=== PATIENT | female | born 1950 | race Caucasian/White ===

== ENCOUNTER → 2017-08-10 14:35 | Outpatient (CLI) | payer MEDICARE, OTHER, SELFPAY ==
[2017-08-10 16:23] LABS: AST(SGOT) 19 U/L (15-37); Alanine Aminotransfer ALT/SGPT 27 U/L (13-56); Free T3 2.9 pg/mL (2.18-3.98); Thyroid Stim Hormone (TSH) 1.54 uIU/mL (0.358-3.74)
== END ==
PROVIDERS: Family Provider Internal Medicine; PCP Internal Medicine; Visit Provider Nurse Practitioner
DX: E04.1 Nontoxic single thyroid nodule (principal)
CPT/HCPCS: 36415; 84439; 84443; 84450; 84460; 84481

== ENCOUNTER → 2017-09-08 12:13 | Outpatient (CLI) | payer MEDICARE, OTHER, SELFPAY ==
--- NOTE | 2017-09-07 15:00 | ASPS_PTH ---
PATIENT: DELIO HUSSEIN LOC: [facility] U#:[id number] AGE/SX: 75/F ROOM: RE09/08/[address]: Dr. Vasiliy Davis MD : [id number] BED: DIS: SPEC #: [id number] RECD: 09/08/17 12:12 STATUS: PARMINDER [place] #: [id number] CALI: 09/07/17 15:[address]: Vasiliy Davis DEPT: CYTOLOGY RECD BY: Mirza Grace Tissues: A - Thyroid gland, NOS B - Thyroid gland, NOS C - Thyroid gland, NOS D - Thyroid gland, NOS E - Thyroid isthmus Procedures: Pap Stain (control) Special Stain Group II Cytology Other HEADER OPERATION: Bilateral thyroid FNA x5 PRE-OP DIAGNOSIS: Multiple thyroid nodules TISSUE SUBMITTED: A ? Right mid thyroid 2 slides, B ? Right lower thyroid 2 slides, C ? Right superior thyroid 2 slides, D ? Left inferior thyroid 3 slides, E ? Isthmus 4 slides DIAGNOSIS CYTOLOGY A. Right mid thyroid nodule, FNA (smears): Consistent with benign colloid nodule. See cytology study and comment. B. Right lower thyroid nodule, FNA (smears): Consistent with benign colloid nodule. See cytology study and comment. C. Right superior thyroid nodule, FNA (smears): A cluster of benign follicular cells noted. See cytology study and comment. D. Right inferior thyroid nodule, FNA (smears): Consistent with benign follicular nodule. See cytology study and comment. E. Isthmus nodule, FNA (smears): Consistent with benign follicular nodule. See cytology study and comment. SJ:rg 09/09/17 COMMENT Correlation with clinical, radiologic findings and appropriate follow up are necessary. CYTOLOGY STUDY Slides are reviewed. A. The specimen is adequate for evaluation due to presence of abundant colloid. The specimen consists of abundant colloid and benign follicular cells. B. The specimen is adequate for evaluation due to presence of abundant colloid. The specimen consists of abundant colloid and rare benign follicular cells. C. The specimen is limited in evaluation due to lack of adequate number of follicular cells. Significant amount of colloid is not seen. D. The specimen is adequate for evaluation. The specimen consists of benign follicular cells and a small amount of diluted colloid. E. The specimen is adequate for evaluation. The specimen consists of benign follicular cells and a small amount of diluted colloid. CYTOLOGY GROSS A - Received are two smears labeled with the patient's name and designated per the requisition as right mid thyroid. Submitted for staining. B - Received are two smears labeled with the patient's name and designated per the requisition as right lower thyroid. Submitted for staining. C - Received are two smears labeled with the patient's name and designated per the requisition as right superior thyroid. Submitted for staining. D - Received are three smears labeled with the patient's name and designated per the requisition as right inferior thyroid. Submitted for staining. E - Received are four smears labeled with the patient's name and designated per the requisition as isthmus. Submitted for staining. 09/08/17 TC:5 CPT: 36567 x5
== END ==
PROVIDERS: Visit Provider Surgery
DX: E04.2 Nontoxic multinodular goiter (principal)
CPT/HCPCS: 88161; 88313

== ENCOUNTER → 2017-11-21 13:53 | Outpatient (CLI) | payer MEDICARE, OTHER, SELFPAY ==
--- NOTE | 2017-11-21 14:01 | RAD_ITS ---
STUDY: X-RAY - LEFT KNEE REASON FOR EXAM: Female, 67 years old. Pain TECHNIQUE: 4 view(s) of the knee. COMPARISON: None. FINDINGS: There is narrowing of the medial compartment of the knee joint with small spurs from the medial tibial femoral condyles. There is also spurring from the lateral tibial condyle. There are no acute fractures and no knee joint effusion. The quadriceps and patellar tendons are normal. RAD/Lumbar Spine 2 or 3 Views IMPRESSION: Mild osteoarthritis of the left knee. No fracture Electronically Signed: Dieudonne Sadler, at 7:20 EDT Tel , Service support ,
--- NOTE | 2017-11-21 14:03 | RAD_ITS ---
STUDY: X-RAY - LEFT KNEE REASON FOR EXAM: Female, 67 years old. Pain TECHNIQUE: 4 view(s) of the knee. COMPARISON: None. FINDINGS: There is narrowing of the medial compartment of the knee joint with small spurs from the medial tibial femoral condyles. There is also spurring from the lateral tibial condyle. There are no acute fractures and no knee joint effusion. The quadriceps and patellar tendons are normal. RAD/Knee 1 or 2 Views IMPRESSION: Mild osteoarthritis of the left knee. No fracture Electronically Signed: Dieudonne Sadler, at 7:20 EDT Tel , Service support ,
== END ==
PROVIDERS: Visit Provider Anesthesiology Pain Medicine
DX: M25.562 Pain in left knee (principal); M54.9 Dorsalgia, unspecified; M79.606 Pain in leg, unspecified
CPT/HCPCS: 72100; 73560

== ENCOUNTER → 2017-12-05 14:36 | Outpatient (CLI) | payer MEDICARE, OTHER, SELFPAY ==
--- NOTE | 2017-12-05 14:38 | BI_ITS ---
MAMMOGRAPHY - BILATERAL SCREENING REASON FOR EXAM: Female, 67 years old. Routine annual screening examination. PERTINENT HISTORY: Non-contributory. History of bilateral breast implants. TECHNIQUE: Digital bilateral breast grecia (3D mammographic acquisition) in the CC and MLO projections. 2-D mediolateral oblique (MLO) and craniocaudad (CC) views of both breasts were obtained. CAD: Full Field Digital Mammography with Computer Added Detection was performed. COMPARISON: Comparison is made with prior study dated November 16, 2016. FINDINGS: Breast Composition: There are scattered areas of fibroglandular density. There are no dominant masses or suspicious calcifications. Breast implants are once again seen bilaterally. There is evidence of contour deformity and shrinkage of the breast implants. This is unchanged. Stable appearance of the small bilateral benign-appearing axillary lymph nodes. No other significant abnormalities are identified. There has been no significant change since the prior study. BI/SCREENING MAMM (CAD), BILAT IMPRESSION: Stable bilateral screening mammogram. Yearly follow-up mammogram recommended. (A) ASSESSMENT CATEGORY: BIRADS Category 2: Benign. A letter regarding these results will be sent to the patient by the facility within 30 days. Approximately 10% of breast cancers are not detected by mammography. A normal mammogram should not delay biopsy of a clinically suspicious abnormality. [id number] Electronically Signed: Travis Quick MD at 8:37 EDT Tel [phone], Service support ,
== END ==
PROVIDERS: Visit Provider Nurse Practitioner Primary Care
DX: Z12.31 Encounter for screening mammogram for malignant neoplasm of breast (principal)
CPT/HCPCS: 77063; 77067

== ENCOUNTER 2018-03-02 08:53 | Outpatient (RCR) | payer MEDICARE, OTHER, SELFPAY | END 2018-03-02 23:59 | disposition home or self-care (01) | LOC: DC 08:53 | PROVIDERS: Family Provider Internal Medicine; PCP Internal Medicine; Visit Provider Internal Medicine | DX: E11.9 Type 2 diabetes mellitus without complications (principal); Z71.3 Dietary counseling and surveillance | CPT/HCPCS: G0109 ==

== ENCOUNTER → 2019-01-24 | Outpatient (CLI) | payer MEDICARE, OTHER, SELFPAY ==
[2019-01-24 11:42] LABS: Absolute Lymphocyte Count 2.46 X10^3/uL (0.83-4.51); Absolute Neutrophil Count 4.2 X10^3/uL (2.0-7.7); Basophil# 0.02 X10^3/uL; Basophil% 0.3 % (0-1); Eosinophil# 0.15 X10^3/uL; Hematocrit 34.7 % (37-47); Hemoglobin 11.5 g/dL (12.0-15.0); Lymphocyte # 2.46 X10^3/ul (4.0); Lymphocyte % 32.7 % (19-41); Mean Corp Hgb Conc 33.1 g/dL (32-36); Mean Corpuscular Hgb 27.1 pg (27.0-32.0); Mean Corpuscular Volume 81.8 fL (81-99); Mean Platelet Vol. 9.5 fl (6.2-12.0); Monocyte# 0.67 X10^3/uL; Monocyte% 8.9 % (0-10); NRBC Flagged by Analyzer 0 % (0-5); Neutrophil % 55.7 % (47-70); Platelet Count 349 K/mm3 (150-450); RBC Distribution Width CV 15.1 % (11.6-14.6); RBC Distribution Width SD 44.9 fl (35.1-43.9); Red Blood Count 4.24 M/mm3 (4.2-5.4); White Blood Count 7.5 K/mm3 (4.4-11.0)
[2019-01-24 11:52] LABS: Color, Urine Yellow (Yellow); Glucose, Dipstick Normal (Normal); Ketone-Dipstick Negative (Negative); Leukocyte Esterase-Dipstick 25 /ul (Negative); Nitrite-Dipstick Negative (Negative); Occult Blood-Urine Negative /ul (Negative); Protein-Dipstick Negative (Negative); Specific Gravity, Urine 1.015 (1.002-1.030); Urine Bilirubin Dipstick Negative (Negative); Urine Clarity Sl. Cloudy (Clear); Urine Urobilinogen Normal (Normal)
[2019-01-24 11:59] LABS: Hemoglobin A1c 6.4 % (4.2-6.3)
[2019-01-24 12:07] LABS: AST(SGOT) 20 U/L (15-37); Alanine Aminotransfer ALT/SGPT 36 U/L (13-56); Albumin, Serum 3.8 g/dL (3.2-5.0); Alkaline Phosphatase 67 U/L (45-117); Anion Gap 6 (5-15); BUN 17 mg/dL (7-18); BUN/Creat Ratio 17.9 RATIO (10-20); Calcium,Total 9.6 mg/dL (8.5-10.1); Chloride 99 mmol/L (98-107); Cholesterol 153 mg/dL (200); Creatinine, Serum 0.95 mg/dL (0.55-1.02); EST Glomerular Filtration Rate 62 mL/min (>60); Est Glom Filt Rate - Afr Amer 74 mL/min (>60); Globulin 3.8 g/dL (2.2-4.2); Glucose 115 mg/dL (74-106); High Density Lipoprotein 54 mg/dL; Potassium 4.3 mmol/L (3.5-5.1); Protein, Total 7.6 g/dL (6.4-8.2); Sodium Level 132 mmol/L (136-145); Triglycerides 178 mg/dL; Very Low Density Lipoprotein 36 mg/dL (5-40)
== END | disposition home or self-care (01) ==
LOC: LAB 11:04
PROVIDERS: Family Provider Family Medicine; PCP Family Medicine; Referring Provider Family Medicine; Visit Provider Family Medicine
DX: Z00.00 Encounter for general adult medical examination without abnormal findings (principal); I10 Essential (primary) hypertension; E78.5 Hyperlipidemia, unspecified; E11.9 Type 2 diabetes mellitus without complications
CPT/HCPCS: 36415; 80053; 80061; 81002; 83036; 85025